=== PATIENT | male | born 1965 | race Caucasian/White ===

== ENCOUNTER → 2020-04-20 | Outpatient (CLI) | payer OTHER | END | disposition home or self-care (01) | LOC: CVU 06:33 | PROVIDERS: ATTEND Internal Medicine Cardiovascular Disease | DX: I37.1 Nonrheumatic pulmonary valve insufficiency (principal); I65.23 Occlusion and stenosis of bilateral carotid arteries; I25.10 Atherosclerotic heart disease of native coronary artery without angina pectoris; E78.2 Mixed hyperlipidemia; I11.9 Hypertensive heart disease without heart failure | CPT/HCPCS: 93306; 93880 ==